=== PATIENT | female | born 1975 | race American Indian/Alaskan Native ===

== ENCOUNTER 2017-12-29 11:23 | Outpatient (CLI) | payer OTHER ==
--- NOTE | 2017-12-29 15:08 | Mammography Report ---
BILATERAL DIGITAL SCREENING MAMMOGRAM with CAD : 12/29/17 11:23:00 CLINICAL: Routine screening. COMPARISON:07/22/08 FINDINGS: The breasts are extremely dense which limits the sensitivity of mammography. No mass, architectural distortion or suspicious calcifications. IMPRESSION: No mammographic evidence of malignancy. BI-RADS CATEGORY: 2 -- Benign RECOMMENDATION: Routine mammographic screening in one year. Consider digital breast tomosynthesis DBT at the next screening since the breasts are so dense. COMMENT: Patient follow-up letters are generated by our [employer] application.
== END 2017-12-29 11:24 | disposition home or self-care (01) ==
LOC: SPVWC 11:23
PROVIDERS: ATTEND Internal Medicine
DX: Z12.31 Encounter for screening mammogram for malignant neoplasm of breast (principal)
CPT/HCPCS: 77067

== ENCOUNTER 2019-04-21 08:51 | Outpatient (CLI) | payer OTHER ==
--- NOTE | 2019-04-21 16:27 | Mammography Report ---
DIGITAL SCREENING MAMMOGRAM WITH CAD, 04/21/2019 INDICATION: Routine screening mammography. TECHNIQUE: Digital bilateral 2D mammography was obtained in the craniocaudal and mediolateral obliq ue projections. This examination was interpreted with the benefit of Computer-Aided Detection analysi s. COMPARISON: 12/29/2017 FINDINGS: Breast Density: The breasts are extremely dense, which lowers the sensitivity of mammography. A right outer asymmetry on CC and exaggerated CC views requires additional imaging. No architectural distortion or suspicious calcifications. There is no evidence of dominant mass, suspicious calcificat ions or architectural distortion in the left breast. IMPRESSION: Right asymmetry requiring additional imaging. Recommend recall for right exaggerated CC s pot compression view and right breast ultrasound if needed. Follow up recommendation: Special View: Spot Category 0: Incomplete. Needs additional imaging evaluation and/or prior mammograms for comparison. A "normal" or negative report should not discourage follow up or biopsy of a clinically significant f inding. A written summary of these findings will be mailed to the patient. The patient will be entered into a mammography reporting system which will generate a reminder letter for the patient's next appointmen t at the appropriate interval. The [employer] recommends yearly mammograms starting at age 40 and continuing as l [place] as a woman is in good health. Breast MRI is recommended for women with an approximate 20-25% or greater lifetime risk of breast cancer, including women with a strong family history of breast or ova christiano cancer or who have been treated for Hodgkin's disease. Signer Name: Carlos A Anguiano MD Signed: 04/21/2019 4:22 PM Workstation Name: [id number]
== END 2019-04-21 08:52 | disposition home or self-care (01) ==
LOC: SPVWC 08:51
PROVIDERS: ATTEND Internal Medicine
DX: Z12.31 Encounter for screening mammogram for malignant neoplasm of breast (principal)
CPT/HCPCS: 77067

== ENCOUNTER 2021-10-24 09:21 | Outpatient (CLI) | payer BC ==
--- NOTE | 2021-10-25 10:02 | Mammography Report ---
DIGITAL SCREENING MAMMOGRAM WITH CAD, 10/24/2021 CLINICAL INFORMATION / INDICATION: Routine screening mammography. TECHNIQUE: Digital bilateral 2D mammography was obtained in the craniocaudal and mediolateral obliqu e projections. This examination was interpreted with the benefit of Computer-Aided Detection analysis . COMPARISON: 12/29/2017 FINDINGS: Breast Density: The breasts are extremely dense, which lowers the sensitivity of mammography. No dominant mass, suspicious calcifications, or architectural distortion in either breast. No interval change. IMPRESSION: No mammographic evidence of malignancy. Follow up recommendation: Routine yearly screening mammogram. BI-RADS Category 1: NEGATIVE A "normal" or negative report should not discourage follow up or biopsy of a clinically significant f inding. A written summary of these findings will be mailed to the patient. The patient will be entered into a mammography reporting system which will generate a reminder letter for the patient's next appointmen t at the appropriate interval. The [employer] recommends yearly mammograms starting at age 40 and continuing as l [place] as a woman is in good health. Breast MRI is recommended for women with an approximate 20-25% or greater lifetime risk of breast cancer, including women with a strong family history of breast or ova christiano cancer or who have been treated for Hodgkin's disease. Signer Name: Karrie Dubois MD Signed: 10/25/2021 9:57 AM Workstation Name: [id number]
== END 2021-10-24 09:22 | disposition home or self-care (01) ==
LOC: SPVWC 09:21
PROVIDERS: ATTEND Internal Medicine
DX: Z12.31 Encounter for screening mammogram for malignant neoplasm of breast (principal); N64.89 Other specified disorders of breast
CPT/HCPCS: 77063; 77067